=== PATIENT | male | born 1995 | race Caucasian/White ===

== ENCOUNTER → 2024-03-13 09:37 | Outpatient (BNVA) | payer OTHER, SELFPAY | PROVIDERS: Visit Provider Physician Assistant Medical | DX: S43.401A Unspecified sprain of right shoulder joint, initial encounter (principal); X50.3XXA Overexertion from repetitive movements, initial encounter | CPT/HCPCS: 99203 ==

== ENCOUNTER → 2024-03-27 10:41 | Outpatient (BNVA) | payer OTHER, SELFPAY | PROVIDERS: PCP Physician Assistant Medical; Visit Provider Physician Assistant Medical | DX: S43.401D Unspecified sprain of right shoulder joint, subsequent encounter (principal) | CPT/HCPCS: 99213 ==

== ENCOUNTER 2024-03-29 19:52 | Outpatient (REF) | payer OTHER, SELFPAY ==
--- NOTE | ~2024-03-29 | MR_ITS ---
EXAMINATION: MR SHOULDER WITHOUT CONTRAST, RIGHT CLINICAL INFORMATION: Right shoulder pain, swelling, numbness. Weakness and instability. Lifting injury. COMPARISON: Right shoulder radiographs dated 03/13/2024. TECHNIQUE: MRI of the shoulder without contrast was performed on a high-field scanner. FINDINGS: Evaluation is somewhat limited due to lack of fat saturation. ROTATOR CUFF: Grossly intact. No muscle atrophy or fatty infiltration. BICEPS: Intact. CORACOACROMIAL ARCH: The undersurface of the acromion is minimally curved with no subacromial spur. The acromioclavicular joint is normal. LABRUM/CAPSULE: No displaced labral tear. Intact joint capsule. GLENOHUMERAL JOINT/MARROW: Intact articular cartilage. No evidence of acute osseous injury. Partially visualized, somewhat pedunculated lesion along the medial cortex of the proximal humeral diametaphysis as seen on the prior radiographs. This measures up to 2.2 cm in ML dimension and has a contiguous marrow cavity. Findings are consistent with an osteochondroma. Cartilaginous cap not well evaluated. MR/MR shoulder RT wo con IMPRESSION: Evaluation is somewhat limited due to lack of fat saturation. 1. Partially visualized osteochondroma along the medial cortex of the proximal humeral diametaphysis measuring up to 2.2 cm in ML dimension. Cartilaginous cap not well evaluated. 2. No acute osseous injury. No displaced labral tear. 3. No rotator cuff tendon tear.
== END 2024-03-29 19:53 | disposition home or self-care (01) ==
LOC: HO.MRI 19:52
PROVIDERS: PCP Physician Assistant Medical; Visit Provider Internal Medicine
DX: M25.511 Pain in right shoulder (principal); R53.1 Weakness
CPT/HCPCS: 73221

== ENCOUNTER → 2024-04-04 09:22 | Outpatient (BNVA) | payer OTHER, SELFPAY | PROVIDERS: PCP Physician Assistant Medical; Visit Provider Physician Assistant Medical | DX: S46.911D Strain of unspecified muscle, fascia and tendon at shoulder and upper arm level, right arm, subsequent encounter (principal); X50.3XXD Overexertion from repetitive movements, subsequent encounter | CPT/HCPCS: 99213 ==

== ENCOUNTER 2024-04-10 10:04 | Outpatient (AMB) | payer OTHER, SELFPAY ==
--- NOTE | 2024-04-10 10:10 | MHC.OFFVIS ---
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 Intake Note: Mark is a 28 year old Right hand dominant male who presents as a new patient with Right shoulder pain with decreased ROM. Patient reports his pain has been going on since he injured it a work by lifting heavy object on March 02 by and is a 7 on the 1-10 pain scale. He states he is using sling, naproxen, flexerill, medrol for the pain with some relief. He denies injections and surgery. The patient has seen his previous x-ray which shows a bony lesion along the medial aspect of his proximal cortex. The patient has been told that his pain may be due to this lesion. He did go to 1 physical therapy session. After x-rays and an MRI were taken he was told to stop physical therapy until he was evaluated by a specialist. The patient reports pain when lifting his right hand above shoulder height. 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 Physical Exam Vital Signs: BMI result Body Mass Index 25.1 Const Other: Well-nourished well-developed very friendly male awake alert and oriented x3 in no acute distress Extrem Other: Right shoulder examination shows decreased active and passive range of motion when compared to his left shoulder, 4+ out of 5 strength with supraspinatus testing, positive impingement signs, no instability Results Reviewed Results Reviewed: MRI report of the patient's right shoulder shows no evidence of rotator cuff tearing, a somewhat pedunculated lesion along the medial cortex of the proximal humeral diametaphysis as seen on the prior radiographs. ThisML measures up to 2.2 cm in the dimension and has a contiguous marrow cavity. Findings are consistent with an osteochondroma. Cartilaginous cap not well evaluated. Assessment & Plan Assessment & Plan (1) Right shoulder pain: Code(s): M25.511 - Pain in right shoulder Category: Medical Plan Mr. Kirk presents with right shoulder pain of unclear etiology. Because of the presence of the bony lesion along the medial aspect of his proximal humerus I did recommend that he be evaluated by Dr. Ortega Duarte, who is an orthopedic oncologist at [facility] in [place], [place]. The patient agrees with this plan. The patient does not appear to have anything structurally wrong within his shoulder joint itself. Because of the patient's significant symptoms he should remain out of work until evaluation by Dr. Duarte. He is encouraged to do gentle [id number] exercises on a daily basis to prevent adhesive capsulitis. Feel free to call me at any time should questions regarding his orthopedic management arise. I spent 22 minutes in reviewing the patient's records and imaging studies, seeing the patient and documenting in the medical record. Coding Level of Care Code New Pt Level 3 (49992) Diagnoses Right shoulder pain M25.511
[2024-04-10 10:13] VITALS: BMI 25.1
== END 2024-04-10 10:40 | disposition home or self-care (01) ==
PROVIDERS: PCP Physician Assistant Medical; Visit Provider Orthopaedic Surgery
DX: M25.511 Pain in right shoulder (principal)
CPT/HCPCS: 99203

== ENCOUNTER → 2024-04-10 10:04 | Outpatient (BNVA) | payer OTHER, SELFPAY | PROVIDERS: PCP Physician Assistant Medical; Visit Provider Orthopaedic Surgery | DX: M25.511 Pain in right shoulder (principal) | CPT/HCPCS: 99202 ==

== ENCOUNTER 2024-05-01 09:25 | Outpatient (AMB) | payer OTHER, SELFPAY ==
--- NOTE | 2024-05-01 09:26 | MHC.OFFVIS ---
Vital Signs 05/01/24 09:27 Height 5 ft 7 in Weight 160 lb BMI 25.1 Handedness Right Intake Visit Reasons: OV-Right shoulder AC joint pain-follow up Intake Note: Mark is a 28 year old right hand dominant male who presents with continued right shoulder pain. The patient was evaluated by Dr. Duarte who told the patient that his right proximal humerus bony lesion is most likely benign and not the source of his pain. The patient is due to have a re-evaluation in 6 months. The patient has not had an injection. He takes Naprosyn and cyclobenzaprine which gave him mild relief. The patient has not yet returned to work. 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 Physical Exam Vital Signs: BMI result Body Mass Index 25.1 Const Other: Well-nourished well-developed very friendly male awake alert and oriented x3 in no acute distress Extrem Other: Right shoulder examination shows decreased range of motion when compared to his left shoulder, positive impingement signs, 4+ out of 5 strength with supraspinatus testing Office Procedures Joint Injection/Drain Joint Injection/Drain Primary Site: right shoulder Prep: site was prepped using aseptic technique Injected: 40 mg of, Kenalog and 1% plain lidocaine Procedure: The patient tolerated the procedure well Coding 15321 - Large joint Procedure code (CPT) selection complete Assessment & Plan Assessment & Plan (1) Impingement of right shoulder: Code(s): M25.811 - Other specified joint disorders, right shoulder Category: Medical Plan Mr. Kirk presents with right shoulder pain due to impingement syndrome. I had a lengthy discussion with the patient regarding the treatment options. The risks and benefits of a right shoulder cortisone injection were discussed at length with the patient. The patient wished to proceed with the injection. He tolerated the injection well. He will continue with his home stretching program to prevent worsening of his stiffness. Will follow up with me on an as-needed basis should his symptoms not plateau at an unacceptable level over the next few months. Feel free to call me at any time should questions regarding his orthopedic management arise. I spent 20 minutes in reviewing the patient's records and imaging studies, seeing the patient and documenting in the medical record. Orders: Orders AMB Joint Injection/Aspiration 05/01/24 M25.811 - Other specified joint disorders, right shoulder Coding Level of Care Code Est Pt Level 3 (15671) Diagnoses Impingement of right shoulder M25.811 CPT Codes Coding - 12566 Large joint: 90903 - Large joint ([id number])
[2024-05-01 09:27] VITALS: BMI 25.1
== END 2024-05-01 09:57 | disposition home or self-care (01) ==
PROVIDERS: PCP Physician Assistant Medical; Visit Provider Orthopaedic Surgery
DX: M25.811 Other specified joint disorders, right shoulder (principal)
CPT/HCPCS: 20610; 99213

== ENCOUNTER → 2024-05-01 09:25 | Outpatient (BNVA) | payer OTHER, SELFPAY | PROVIDERS: PCP Physician Assistant Medical; Visit Provider Orthopaedic Surgery | DX: M25.811 Other specified joint disorders, right shoulder (principal) | CPT/HCPCS: 20610; 99212; J1010 ==

== ENCOUNTER 2024-07-11 11:37 | Outpatient (AMB) | payer OTHER, SELFPAY ==
--- NOTE | 2024-07-11 11:45 | A.OFFVIS_ITS ---
Intake Visit Reasons: Right shoulder pain Intake Note: Mark is a 29 year old male who presents with complaints of mild intermittent discomfort in his right shoulder. The patient did have a cortisone injection given into his right shoulder on 05/01/2024. He states that he has gotten fairly good relief from the injection. He has taken anti-inflammatory medicines which gave him mild relief. He would like to return to work. 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 Kirk presents with intermittent right shoulder discomfort due to impingement syndrome. I had a lengthy discussion with the patient regarding the treatment options. At this point the patient's symptoms are tolerable to him. He will continue with his range of motion exercises to prevent stiffness. The do's and don'ts of lifting were discussed at length with the patient. I have cleared him to return to work. He will follow up with me on an as-needed basis should any questions or concerns arise. Feel free to call me at any time should questions regarding his orthopedic management arise. I spent 20 minutes in reviewing the patient's records and imaging studies, seeing the patient and documenting in the medical record. Coding Level of Care Code Est Pt Level 3 (58253) Diagnoses Right shoulder pain M25.511
== END 2024-07-11 12:02 | disposition home or self-care (01) ==
PROVIDERS: PCP Physician Assistant Medical; Visit Provider Orthopaedic Surgery
DX: M25.511 Pain in right shoulder (principal)
CPT/HCPCS: 99213

== ENCOUNTER → 2024-07-11 11:37 | Outpatient (BNVA) | payer OTHER, SELFPAY | PROVIDERS: PCP Physician Assistant Medical; Visit Provider Orthopaedic Surgery | DX: M75.41 Impingement syndrome of right shoulder (principal) | CPT/HCPCS: 99212 ==